=== PATIENT | female | born 1990 ===

== ENCOUNTER 2018-07-10 07:58 | Inpatient (IN) | payer BC, OTHER ==
[2018-07-10] MEDS ORDERED: BUTORPHANOL TARTRATE 1 MG/ML VIAL IVPB ONE (08:42)
[2018-07-10] MEDS ORDERED: PROMETHAZINE HCL 25 MG/1 ML VIAL IVPUSH ONE (08:42)
[2018-07-10] MEDS ORDERED: ELECTROLYTE-148 SOLN 1,000 ML IV SCH (08:45)
--- NOTE | 2018-07-10 08:50 | HP ---
Past Medical History - Primary Care Physician PCP:: Kacie Rock - Admission Chief Complaint: SROM History of Present Illness: 28 yo G1 P) EDC 07/20/18 EGA 38.4 weeks admitted for spontaneous rupture of membranes no bleeding +AFM History Source: Patient - Past Surgical History Hx Myomectomy: No Hx Transabdominal Cerclage: No Home Medications - Allergies Allergies/Adverse Reactions: Allergies Allergy/AdvReac Type Severity Reaction Status Date / Time aspirin Allergy Severe Difficulty Verified 07/10/18 09:20 Breathing aspirin Allergy Severe Difficulty Uncoded 07/10/18 09:05 Breathing - Home Medications Home Medications: Ambulatory Orders Vitamins (Sjr) - 1 tab PO DAILY 07/10/18 Review of Systems - Review of Systems Constitutional: reports: No Symptoms Eyes: reports: No Symptoms HENT: reports: No Symptoms Neck: reports: No Symptoms Cardiovascular: reports: No Symptoms Respiratory: reports: No Symptoms Gastrointestinal: reports: No Symptoms Genitourinary: reports: No Symptoms Breasts: reports: No Symptoms Reported Musculoskeletal: reports: No Symptoms Integumentary: reports: No Symptoms Neurological: reports: No Symptoms Endocrine: reports: No Symptoms Hematology/Lymphatic: reports: No Symptoms Psychiatric: reports: No Symptoms Physical Exam - Maternity Constitutional: Yes: Well Nourished, No Distress Neck: Yes: WNL Cardiovascular: Yes: WNL Lungs: Clear to auscultation Breast(s): Yes: WNL - Abdominal Exam/OB Number of Fetuses: Single Presentation: Vertex Contractions: Yes Regularity: Irregular Category: I - Vaginal Exam/OB Dilatation (cm): 1 cm Effacement (%): 90 Amniotic Membrane Status: Ruptured Presentation: Vertex/Position Station: 0 - Physical Exam Musculoskeletal: Yes: WNL Extremities: Yes: WNL Edema: No Integumentary: Yes: WNL Hemorrhage Risk Assessment - Risk Factors Risk Score: 1 Risk Level: Medium Risk Problem List - Problems (1) Spontaneous rupture of amniotic membranes Code(s): WKB9941 - (2) 38 weeks gestation of Code(s): Z3A.38 - 38 WEEKS GESTATION OF Assessment/Plan IUP at 38.4 week GBS neg SROM Plan will consider pit augmentation
[2018-07-10] MEDS ORDERED: AMPICILLIN - 2 GM in SODIUM CHLORIDE 100 ML IVPB ONE (09:30)
[2018-07-10] MEDS ORDERED: TUBERCULIN PPD 5 TU/0.1ML SYRINGE (IN PATIENT USE ONLY) ID ONE (09:30)
[2018-07-10 09:43] VITALS: BMI 36.2
[2018-07-10 09:58] LABS: BASO % 0.2 % (0-2.0); EOS % 0.7 % (0-4.5); HEMATOCRIT 35.7 % (32.4-45.2); HEMOGLOBIN 12.3 GM/dL (10.7-15.3); LYMPH % 15.7 % (8-40); MCH 34.7 pg (25.7-33.7); MCHC 34.4 g/dl (32.0-36.0); MEAN CELL VOLUME 100.9 fl (80-96); MEAN PLT VOLUME 8.9 fl (7.5-11.1); NEUT % 76.4 % (42.8-82.8); PLATELET COUNT 247 K/MM3 (134-434); RBC 3.54 M/mm3 (3.60-5.2); RDW 12.5 % (11.6-15.6); WHITE BLOOD COUNT 11.3 K/mm3 (4.0-10.0)
[2018-07-10] MEDS ORDERED: AMPICILLIN SODIUM 2 GM VIAL ONE (10:28)
[2018-07-10 10:29] LABS: ANION GAP 8 MMOL/L (8-16); BLOOD UREA NITROGEN 6 mg/dL (7-18); CALCIUM 9.1 mg/dL (8.5-10.1); CHLORIDE 106 mmol/L (98-107); CO2 22 mmol/L (21-32); CREATININE 0.5 mg/dL (0.55-1.3); GLUCOSE,RANDOM 85 mg/dL (74-106); POTASSIUM 3.9 mmol/L (3.5-5.1); SODIUM 137 mmol/L (136-145)
[2018-07-10 11:45] LABS: INR 0.96 (0.83-1.09); PROTHROMBIN TIME (PATIENT) 11.3 SEC (9.7-13.0)
[2018-07-10 11:48] LABS: ACTIVATED PTT 26.6 SECONDS (25.2-36.5)
--- NOTE | 2018-07-10 13:04 | PN ---
Ante-Partal Exam - Subjective Subjective: Pt with mild pain Vital Signs: Vital Signs Temperature 98.4 F 07/10/18 11:00 Pulse Rate 88 07/10/18 12:00 Respiratory Rate 18 07/10/18 12:00 Blood Pressure 124/78 07/10/18 12:00 O2 Sat by Pulse Oximetry (%) Bleeding: No Headache: No Visual changes: No Right upper quadrant pain: No - Contractions Contractions: Yes Regularity: Irregular Intensity: Mild Monitor Mode: External - Exam during Labor Heart Rate: 150 Variability: Moderate Heart Rate Location: [facility] Category: I Monitor Accelerations: Present Monitor Decelerations: None Exam: Vaginal Dilatation (cm): 2 Effacement (%): 90 Amniotic Membrane Status: Ruptured Amniotic Fluid: Clear Presentation: Vertex Station: 0 - Intrapartum Hemorrhage Risk Risk Score: 1 Risk Level: Medium Risk - Assessment/Plan Assessment/Plan: IUP at 38.4 weeks Srom Cat1 Plan pitocinaugmentation
[2018-07-10] MEDS ORDERED: OXYTOCIN 30 UNITS in 0.9% NS 30 UNIT/500 ML INFUS.BAG IVPB ONE (13:08)
[2018-07-10] MEDS ORDERED: AMPICILLIN - 1 GM in SODIUM CHLORIDE 100 ML IVPB SCH (13:24)
[2018-07-10] MEDS ORDERED: OXYTOCIN 30 UNITS in 0.9% NS 30 UNIT/500 ML INFUS.BAG IVPB SCH (13:30)
[2018-07-10] MEDS ORDERED: FENTANYL/BUPIVACAINE/NS/PF - PCEA - 50 ML DISP.SYRIN EP ONE ×2 (16:18→21:03)
[2018-07-10] MEDS ORDERED: LIDO 2%/EPI 1:200000 PRESRVFRE (20 ML SDVIAL) ONE (16:29)
[2018-07-10] MEDS ORDERED: BUPIVACAINE HCL/PF 0.25% (2.5MG/ML) 10 ML VIAL ONE (16:29)
[2018-07-10] MEDS ORDERED: NALOXONE HCL 0.4 MG/ML VIAL IVPUSH PRN (16:50)
[2018-07-10] MEDS ORDERED: FENTANYL/BUPIVACAINE/NS/PF - PCEA - 50 ML DISP.SYRIN EP SCH (17:00)
--- NOTE | 2018-07-10 18:12 | PN ---
Ante-Partal Exam - Subjective Subjective: Pt sp epidural pt on 10 mu pitocin Vital Signs: Vital Signs Temperature 98.2 F 07/10/18 17:59 Pulse Rate 77 07/10/18 17:30 Respiratory Rate 20 07/10/18 17:30 Blood Pressure 89/53 L 07/10/18 17:30 O2 Sat by Pulse Oximetry (%) 100 07/10/18 17:30 Bleeding: No Headache: No Visual changes: No Right upper quadrant pain: No - Contractions Contractions: Yes Monitor Mode: External - Exam during Labor Heart Rate: 150 Category: I Monitor Decelerations: None Exam: Vaginal Dilatation (cm): 3 Effacement (%): 90 Amniotic Membrane Status: Ruptured Presentation: Vertex Station: 0 - Intrapartum Hemorrhage Risk Risk Score: 1 Risk Level: Medium Risk - Assessment/Plan Assessment/Plan: Cat 1 adequate contractions 3 cm SP epidural Plan Continue pitocin augmentation
--- NOTE | 2018-07-10 19:23 | PN ---
Ante-Partal Exam - Subjective Subjective: Pt doing well at 10 mu pitocin pt with epidural Vital Signs: Vital Signs Temperature 98.6 F 07/10/18 19:00 Pulse Rate 81 07/10/18 18:45 Respiratory Rate 20 07/10/18 18:45 Blood Pressure 111/67 07/10/18 18:45 O2 Sat by Pulse Oximetry (%) 100 07/10/18 18:45 Bleeding: No Headache: No Visual changes: No Right upper quadrant pain: No - Contractions Contractions: Yes Regularity: Regular Intensity: Mild/Mod Monitor Mode: External - Exam during Labor Variability: Moderate Category: I Monitor Accelerations: Present Monitor Decelerations: None Exam: Vaginal Dilatation (cm): 3 Effacement (%): 90 Amniotic Membrane Status: Ruptured Presentation: Vertex Station: +1 - Assessment/Plan Assessment/Plan: IUP at 38 week SROm Cat1 Plan pitocin aug
[2018-07-10] MEDS ORDERED: LIDOCAINE HCL 1% PRESERVATIVE FREE - 30ML VIAL ONE (21:03)
[2018-07-10] MEDS ORDERED: OXYTOCIN 20 UNITS in 0.9% NS 20 UNIT/1,000 ML INFUS.BAG IV ONE (21:04)
[2018-07-10] MEDS ORDERED: OXYTOCIN 20 UNITS in 0.9% NS 20 UNIT/1,000 ML INFUS.BAG IV SCH (22:00)
--- NOTE | 2018-07-10 22:37 | PN ---
Ante-Partal Exam - Subjective Subjective: Pt doing well + pressure Vital Signs: Vital Signs Temperature 99.3 F 07/10/18 21:00 Pulse Rate 89 07/10/18 20:45 Respiratory Rate 18 07/10/18 20:45 Blood Pressure 101/65 07/10/18 20:45 O2 Sat by Pulse Oximetry (%) 99 07/10/18 20:45 Bleeding: No Headache: No Visual changes: No Right upper quadrant pain: No - Contractions Contractions: Yes Regularity: Regular Intensity: Moderate Monitor Mode: External - Exam during Labor Heart Rate: 150 Variability: Moderate Category: I Monitor Accelerations: Present Exam: Vaginal Dilatation (cm): FD Amniotic Membrane Status: Ruptured Presentation: Vertex Station: +2 - Intrapartum Hemorrhage Risk Risk Score: 1 Risk Level: Medium Risk - Assessment/Plan Assessment/Plan: IUP @ 38 wk 2nd stage of labor Plan anticipate vaginal delivery
[2018-07-10] MEDS ORDERED: BENZOCAINE 20% 57 GM BOTTLE TP PRN (22:39)
[2018-07-10] MEDS ORDERED: WITCH HAZEL 50% (TUCKS) 40 PAD/JAR PAD TP PRN (22:39)
[2018-07-10] MEDS ORDERED: METHYLERGONOVINE MALEATE 0.2 MG/1 ML AMP IM PRN (22:39)
[2018-07-10] MEDS ORDERED: BENZOCAINE 28 GM HEMORRHOIDAL OINTMENT PR PRN (22:39)
[2018-07-10] MEDS ORDERED: BISACODYL 10 MG SUPP.RECT PR PRN (22:39)
--- NOTE | 2018-07-10 22:39 | PN ---
Delivery - Delivery Vaginal Delivery: No Problems Type of Anesthesia: Epidural Episiotomy/Laceration: None EBL (cc): 250 (nuchal x1 OA Val) Delivery, Single - Feeding Plan Initial Plan: Elected not to breastfeed exclusively throughout hospitalization
[2018-07-10 22:55] LABS: ARTERIAL BLD GAS O2 SATURATION 22.7 % (90-98.9); ARTERIAL BLOOD GAS PCO2 73.3 mmHg (35-45); ARTERIAL BLOOD GAS PO2 19.2 mmHg (80-100); ARTERIAL BLOOD GAS pH 7.19 (7.35-7.45)
[2018-07-10] MEDS: ACETAMINOPHEN 325 MG TABLET (FP) PO PRN (23:00)
[2018-07-10] MEDS ORDERED: ACETAMINOPHEN 325 MG TABLET (FP) ONE (23:00)
[2018-07-10] MEDS: IBUPROFEN 600 MG TABLET (FP) PO PRN (23:00)
[2018-07-10] MEDS ORDERED: IBUPROFEN 600 MG TABLET (FP) PO ONE (23:00)
[2018-07-10 23:11] LABS: VENOUS PC02 42.3 mmHg (38-52); VENOUS PH 7.37 (7.32-7.42); VENOUS PO2 38.1 mmHg (28-48)
[2018-07-11 07:34] LABS: BASO % 0.3 % (0-2.0); EOS % 0.6 % (0-4.5); HEMATOCRIT 33.4 % (32.4-45.2); HEMOGLOBIN 11.6 GM/dL (10.7-15.3); LYMPH % 15.5 % (8-40); MCHC 34.6 g/dl (32.0-36.0); MEAN CELL VOLUME 101.1 fl (80-96); MEAN PLT VOLUME 9.2 fl (7.5-11.1); MONO % 7.8 % (3.8-10.2); NEUT % 75.8 % (42.8-82.8); PLATELET COUNT 226 K/MM3 (134-434); RDW 12.6 % (11.6-15.6); WHITE BLOOD COUNT 14.8 K/mm3 (4.0-10.0)
--- NOTE | 2018-07-11 08:15 | PN ---
Post Note - Post Date of Delivery: 07/10/18 Post Day: 1 Vital Signs: Vital Signs - 24 hr 07/10/18 07/10/18 07/10/18 09:00 09:26 10:00 Temperature 97.8 F 98.4 F 98.1 F Pulse Rate 90 96 H 83 Respiratory 18 20 20 Rate Blood Pressure 134/74 134/78 133/85 O2 Sat by Pulse Oximetry (%) 07/10/18 07/10/18 07/10/18 11:00 12:00 13:00 Temperature 98.4 F Pulse Rate 84 88 90 Respiratory 18 18 18 Rate Blood Pressure 120/73 124/78 128/72 O2 Sat by Pulse Oximetry (%) 07/10/18 07/10/18 07/10/18 14:00 15:00 16:00 Temperature 98.1 F 99.0 F Pulse Rate 95 H 88 86 Respiratory 18 18 20 Rate Blood Pressure 121/74 122/67 121/78 O2 Sat by Pulse Oximetry (%) 07/10/18 07/10/18 07/10/18 16:45 16:50 16:55 Temperature Pulse Rate 90 93 H 88 Respiratory 20 20 20 Rate Blood Pressure 119/74 104/52 L 107/47 L O2 Sat by Pulse 95 96 97 Oximetry (%) 07/10/18 07/10/18 07/10/18 17:00 17:15 17:30 Temperature 98.1 F Pulse Rate 83 80 77 Respiratory 20 20 20 Rate Blood Pressure 98/56 L 105/63 89/53 L O2 Sat by Pulse 97 99 100 Oximetry (%) 07/10/18 07/10/18 07/10/18 17:45 18:00 18:15 Temperature 98.2 F Pulse Rate 87 82 81 Respiratory 20 20 20 Rate Blood Pressure 96/51 L 106/64 104/62 O2 Sat by Pulse 89 L 100 100 Oximetry (%) 07/10/18 07/10/18 07/10/18 18:30 18:45 19:00 Temperature 98.6 F Pulse Rate 83 81 83 Respiratory 20 20 18 Rate Blood Pressure 110/64 111/67 103/66 O2 Sat by Pulse 100 100 100 Oximetry (%) 07/10/18 07/10/18 07/10/18 19:15 19:30 19:45 Temperature Pulse Rate 82 82 82 Respiratory 18 18 18 Rate Blood Pressure 109/59 L 106/62 107/62 O2 Sat by Pulse 100 100 99 Oximetry (%) 07/10/18 07/10/18 07/10/18 20:00 20:15 20:30 Temperature 98.3 F Pulse Rate 92 H 88 84 Respiratory 18 18 18 Rate Blood Pressure 108/63 114/60 101/64 O2 Sat by Pulse 100 100 100 Oximetry (%) 07/10/18 07/10/18 07/10/18 20:45 21:00 21:15 Temperature 99.3 F Pulse Rate 89 90 86 Respiratory 18 18 18 Rate Blood Pressure 101/65 112/67 115/64 O2 Sat by Pulse 99 100 100 Oximetry (%) 07/10/18 07/10/18 07/10/18 21:30 21:45 22:00 Temperature Pulse Rate 85 85 89 Respiratory 18 18 18 Rate Blood Pressure 123/71 120/70 115/71 O2 Sat by Pulse 100 100 100 Oximetry (%) 07/10/18 07/10/18 07/10/18 22:15 23:00 23:15 Temperature 98.4 F Pulse Rate 96 H 100 H 94 H Respiratory 18 18 18 Rate Blood Pressure 134/77 127/77 131/73 O2 Sat by Pulse 99 100 100 Oximetry (%) 07/10/18 07/10/18 07/11/18 23:30 23:45 00:00 Temperature Pulse Rate 88 89 89 Respiratory 18 18 18 Rate Blood Pressure 114/56 L 106/63 112/61 O2 Sat by Pulse 98 97 96 Oximetry (%) 07/11/18 07/11/18 00:15 01:06 Temperature 98.3 F 97.4 F L Pulse Rate 91 H 95 H Respiratory 18 20 Rate Blood Pressure 109/63 120/74 O2 Sat by Pulse 100 Oximetry (%) Labs: Laboratory Results - last 24 hr 07/10/18 07/10/18 07/10/18 08:43 09:15 09:35 WBC 11.3 H RBC 3.54 L Hgb 12.3 Hct 35.7 MCV 100.9 H MCH 34.7 H MCHC 34.4 RDW 12.5 Plt Count 247 MPV 8.9 Absolute Neuts (auto) 8.6 H Neutrophils % 76.4 Lymphocytes % 15.7 Monocytes % 7.0 Eosinophils % 0.7 Basophils % 0.2 Nucleated RBC % 0 PT with INR 11.30 INR 0.96 PTT (Actin FS) 26.6 ABG pH ABG pCO2 at Pt Temp ABG pO2 at Pt Temp ABG HCO3 ABG O2 Sat (Measured) ABG O2 Content ABG Base Excess VBG pH POC VBG pCO2 POC VBG pO2 Mixed VBG HCO3 Sodium 137 Potassium 3.9 Chloride 106 Carbon Dioxide 22 Anion Gap 8 BUN 6 L Creatinine 0.5 L Creat Clearance w eGFR > 60 Random Glucose 85 Calcium 9.1 RPR Titer HIV 1&2 Antibody Screen HIV P24 Antigen Blood Type Antibody Screen 07/10/18 07/10/18 07/10/18 09:35 09:35 09:35 WBC RBC Hgb Hct MCV MCH MCHC RDW Plt Count MPV Absolute Neuts (auto) Neutrophils % Lymphocytes % Monocytes % Eosinophils % Basophils % Nucleated RBC % PT with INR INR PTT (Actin FS) ABG pH ABG pCO2 at Pt Temp ABG pO2 at Pt Temp ABG HCO3 ABG O2 Sat (Measured) ABG O2 Content ABG Base Excess VBG pH POC VBG pCO2 POC VBG pO2 Mixed VBG HCO3 Sodium Potassium Chloride Carbon Dioxide Anion Gap BUN Creatinine Creat Clearance w eGFR Random Glucose Calcium RPR Titer Nonreactive HIV 1&2 Antibody Screen Negative HIV P24 Antigen Negative Blood Type O POSITIVE Antibody Screen Negative 07/10/18 07/10/18 07/10/18 11:30 22:28 22:28 WBC RBC Hgb Hct MCV MCH MCHC RDW Plt Count MPV Absolute Neuts (auto) Neutrophils % Lymphocytes % Monocytes % Eosinophils % Basophils % Nucleated RBC % PT with INR INR PTT (Actin FS) ABG pH 7.19 L* ABG pCO2 at Pt Temp 73.3 H* ABG pO2 at Pt Temp 19.2 L* ABG HCO3 26.9 H ABG O2 Sat (Measured) 22.7 L* ABG O2 Content 4.5 L* ABG Base Excess -3.0 L VBG pH 7.37 POC VBG pCO2 42.3 POC VBG pO2 38.1 Mixed VBG HCO3 23.7 Sodium Potassium Chloride Carbon Dioxide Anion Gap BUN Creatinine Creat Clearance w eGFR Random Glucose Calcium RPR Titer HIV 1&2 Antibody Screen HIV P24 Antigen Blood Type O POSITIVE Antibody Screen 07/11/18 07:15 WBC 14.8 H RBC 3.30 L Hgb 11.6 Hct 33.4 MCV 101.1 H MCH 35.0 H MCHC 34.6 RDW 12.6 Plt Count 226 MPV 9.2 Absolute Neuts (auto) 11.2 H Neutrophils % 75.8 Lymphocytes % 15.5 Monocytes % 7.8 Eosinophils % 0.6 Basophils % 0.3 Nucleated RBC % 0 PT with INR INR PTT (Actin FS) ABG pH ABG pCO2 at Pt Temp ABG pO2 at Pt Temp ABG HCO3 ABG O2 Sat (Measured) ABG O2 Content ABG Base Excess VBG pH POC VBG pCO2 POC VBG pO2 Mixed VBG HCO3 Sodium Potassium Chloride Carbon Dioxide Anion Gap BUN Creatinine Creat Clearance w eGFR Random Glucose Calcium RPR Titer HIV 1&2 Antibody Screen HIV P24 Antigen Blood Type Antibody Screen - Subjective Subjective: No Complaints - Objective Afebrile: Yes Breast: Not engorged Abdomen: Soft Uterus: Fundus firm Vagina: Scant lochia Extremities: Non-tender - Assessment/Plan (1) Spontaneous rupture of amniotic membranes Assessment: S/P Normal Plan: Routine Care (2) 38 weeks gestation of Assessment: S/P Normal Plan: Routine Care
[2018-07-11] MEDS ORDERED: FLU VACCINE QUAD 60 MCG/0.5 ML (MDV 18-19) IM ONE (10:00)
[2018-07-11] MEDS ORDERED: PNEUMOC 13-VAL CONJ-DIP CRM/PF 0.5 ML DISP.SYRIN IM ONE (10:00)
[2018-07-11] MEDS ORDERED: PNEUMOCOCCAL 23 VACCINE 0.5 ML VIAL IM ONE (10:00)
[2018-07-11] MEDS ORDERED: DIPHTH,PERTUSS(ACELL),TET 0.5 ML DISP.SYRIN IM ONE (10:00)
[2018-07-11] MEDS: ACETAMINOPHEN 325 MG TABLET (FP) PO PRN (15:26)
[2018-07-11] MEDS: IBUPROFEN 600 MG TABLET (FP) PO PRN (15:27)
[2018-07-12] MEDS: IBUPROFEN 600 MG TABLET (FP) PO PRN ×2 (05:07→11:19)
[2018-07-12] MEDS: ACETAMINOPHEN 325 MG TABLET (FP) PO PRN ×2 (05:07→11:19)
[2018-07-12 08:01] VITALS: BP 108/62; PULSE 96; TEMP 98.5
--- NOTE | 2018-07-12 12:32 | DS ---
Physical Exam-[employer]MENT[employer] Vital Signs: Vital Signs Temperature 98.5 F 07/12/18 08:00 Pulse Rate 96 H 07/12/18 08:00 Respiratory Rate 20 07/12/18 08:00 Blood Pressure 108/62 07/12/18 08:00 O2 Sat by Pulse Oximetry (%) 100 07/11/18 00:15 Constitutional: Yes: Well Nourished, No Distress Cardiovascular: Yes: WNL Respiratory: Yes: WNL Gastrointestinal: Yes: WNL, Normal Bowel Sounds, Soft ....Post : Yes: Uterus firm, Uterus non-tender Breast(s): Yes: WNL Musculoskeletal: Yes: WNL Extremities: Yes: WNL Edema: No Labs: CBC, BMP 07/11/18 07:15 07/10/18 08:43 Delivery - Delivery Vaginal Delivery: No Problems Type of Anesthesia: Epidural Episiotomy/Laceration: None EBL (cc): 250 Delivery, Single - Stages of Labor Date 1st Stage Initiatied: 07/10/18 Time 1st Stage Initiated: 10:30 Date 2nd Stage Initiated: 07/10/18 Time 2nd Stage Initiated: 22:10 Date of Delivery: 07/10/18 Time of Delivery: 22:27 Time Placenta Delivered: 22:30 Placenta: Yes: Spontaneous - Condition of Drawing In [employer] Present: No Infant Gender: Female Weight: 7 lb 11 oz Position: OA Total Hours ROM (Hrs/Mins): 16Hrs/45Mins - 1 Minute Total Score: 9 5 Minutes Total Score: 9 - Feeding Plan Initial Plan: Elected not to breastfeed exclusively throughout hospitalization Discharge Summary Reason For Visit: LABOR Current Active Problems 38 weeks gestation of (Acute) Spontaneous rupture of amniotic membranes (Acute) Procedures: Principal: Normal vaginal delivery Hospital Course: Unremarkable - Instructions Diet, Activity, Other Instructions: return to office in 6 weeks for check. call for appointment. Referrals: Kacie Rock MD [Staff Physician] - - Home Medications Comprehensive Discharge Medication List: Ambulatory Orders Vitamins (Sjr) - 1 tab PO DAILY 07/10/18 Acetaminophen [Tylenol] 325 mg PO TID #40 tablet 07/12/18 Ibuprofen [Motrin -] 600 mg PO QID #28 tablet 07/12/18
[2018-07-12 15:16] LABS: HBsAG SCREEN Negative (Negative)
[2018-07-12 16:19] LABS: RUBELLA ANTIBODY,IGM <20.0 AU/mL (0.0-19.9); RUBELLA IgG ANTIBODY 1.64 index (Immune >0.99)
== END 2018-07-12 12:50 | disposition home or self-care (01) | DRG 807 ==
LOC: JDEL 07:58 → JLDR 08:00 → J3W 07-11 00:35
PROVIDERS: ADMIT Obstetrics & Gynecology; ATTEND Obstetrics & Gynecology
PROC: 10E0XZZ Delivery of Products of Conception, External Approach (ICD-10-PCS; principal; 2018-07-10)
PROC: 0W8NXZZ Division of Female Perineum, External Approach (ICD-10-PCS; 2018-07-10)
DX: O80 Encounter for full-term uncomplicated delivery (principal); Z37.0 Single live birth; Z3A.38 38 weeks gestation of pregnancy
CPT/HCPCS: 36415; 36600; 59409; 80048; 82803; 85025; 85610; 85730; 86593; 86762; 86850; 86900; 86901; 87340; 87389; 90686; 90715; 90732; G0008; G0009